=== PATIENT | female | born 1965 | race Caucasian/White ===

== ENCOUNTER 2018-08-13 10:14 | Day surgery (SDC) | payer OTHER ==
[2018-08-13] MEDS ORDERED: MIDAZOLAM 1 MG/ML 2 ML INJ ×3 (12:39)
[2018-08-13] MEDS ORDERED: FENTAnyl 50 MCG/ML VIAL (12:39)
== END 2018-08-13 14:24 | disposition home or self-care (01) ==
LOC: GIL 10:14
DX: Z12.11 Encounter for screening for malignant neoplasm of colon (principal); K64.8 Other hemorrhoids
CPT/HCPCS: 45378; 84703